=== PATIENT | female | born 1995 | race American Indian/Alaskan Native ===

== ENCOUNTER 2020-11-03 03:03 | Emergency (ER) | payer OTHER ==
[2020-11-03 03:53] VITALS: BP 121/82
[2020-11-03] MEDS ORDERED: SODIUM CHLORIDE 0.9% 1000 ML 1,000 ML IV ONE (03:57)
[2020-11-03] MEDS ORDERED: ONDANSETRON 4 MG/2 ML INJ IV ONE (03:57)
[2020-11-03] MEDS ORDERED: diphenhydrAMINE 50 MG/ML VIAL IV ONE ×2 (03:57→05:18)
--- NOTE | 2020-11-03 04:02 | Emergency Department Report ---
ED General Adult HPI - General Chief complaint: Nausea/Vomiting/Diarrhea Stated complaint: WITHDRAWALS Time Seen by Provider: 11/03/20 03:50 Source: patient Mode of arrival: Ambulatory Limitations: No Limitations - History of Present Illness Initial comments: Patient is 25 years old female with history of opiate abuse. Patient stated that she has been using oxycodone every day. Patient stated that she stopped taking oxycodone since yesterday and now she is having withdrawal symptoms. Patient stated that she is having nausea, vomiting and diarrhea. She stated that she is unable to keep anything down. Patient also complaining of itching. Patient denied any headache, neck pain, weakness numbness or tingling sensation. No suicidal or homicidal ideation. No visual or auditory hallucination. - Related Data Home Medications Medication Instructions Recorded Confirmed Last Taken Albuterol Mdi (or & Nicu Only) 11/03/20 11/03/20 [ProAir HFA Inhaler] Previous Rx's Medication Instructions Recorded Last Taken Type Ondansetron [Zofran Odt] 4 mg PO Q8HR PRN #14 tab.rapdis 11/03/20 Unknown Rx diphenhydrAMINE [Benadryl CAP] 25 mg PO Q8HR PRN #20 capsule 11/03/20 Unknown Rx Allergies Allergy/AdvReac Type Severity Reaction Status Date / Time shellfish derived Allergy Hives Verified 11/03/20 03:17 ED Review of Systems ROS: Stated complaint: WITHDRAWALS Other details as noted in HPI Comment: All other systems reviewed and negative Constitutional: denies: chills, fever ENT: denies: throat pain Respiratory: denies: cough, shortness of breath, SOB with exertion, SOB at rest Cardiovascular: denies: chest pain, palpitations Gastrointestinal: nausea, vomiting, diarrhea. denies: abdominal pain Musculoskeletal: denies: back pain Neurological: denies: headache, weakness, numbness, paresthesias, confusion Psychiatric: anxiety. denies: depression, auditory hallucinations, visual hallucinations, homicidal thoughts, suicidal thoughts ED Past Medical Hx - Past Medical History Previous Medical History?: Yes Hx Asthma: Yes - Social History Smoking Status: Never Smoker Substance Use Type: Prescribed - Medications Home Medications: Home Medications Medication Instructions Recorded Confirmed Last Taken Type Albuterol Mdi (or & Nicu Only) 11/03/20 11/03/20 History [ProAir HFA Inhaler] Ondansetron [Zofran Odt] 4 mg PO Q8HR PRN #14 tab.rapdis 11/03/20 Unknown Rx diphenhydrAMINE [Benadryl CAP] 25 mg PO Q8HR PRN #20 capsule 11/03/20 Unknown Rx ED Physical Exam - General Limitations: No Limitations General appearance: alert, in no apparent distress, anxious - Head Head exam: Present: atraumatic, normocephalic, normal inspection - Eye Eye exam: Present: normal appearance, PERRL - ENT ENT exam: Present: mucous membranes dry - Neck Neck exam: Present: normal inspection. Absent: tenderness, meningismus - Respiratory Respiratory exam: Present: normal lung sounds bilaterally - Cardiovascular Cardiovascular Exam: Present: regular rate, normal rhythm, normal heart sounds - GI/Abdominal GI/Abdominal exam: Present: soft, normal bowel sounds. Absent: distended, tenderness, guarding, rebound, rigid, organomegaly, mass, bruit, pulsatile mass, hernia - Extremities Exam Extremities exam: Present: normal inspection, full ROM, normal capillary refill. Absent: tenderness, pedal edema, calf tenderness - Back Exam Back exam: Present: normal inspection, full ROM. Absent: CVA tenderness (R), CV A tenderness (L) - Neurological Exam Neurological exam: Present: alert, oriented X3, CN II-XII intact, normal gait, reflexes normal. Absent: motor sensory deficit - Psychiatric Psychiatric exam: Present: normal mood - Skin Skin exam: Present: warm, intact, normal color ED Course Vital Signs 11/03/20 03:10 Temperature 98.7 F Pulse Rate 73 Respiratory 18 Rate Blood Pressure 121/82 ED Medical Decision Making - Lab Data Result diagrams: 11/03/20 03:54 11/03/20 03:54 - Medical Decision Making Patient is 25 years old female with history of opiate abuse. Patient stated that she has been using oxycodone every day. Patient stated that she stopped taking oxycodone since yesterday and now she is having withdrawal symptoms. Patient stated that she is having nausea, vomiting and diarrhea. She stated that she is unable to keep anything down. Patient also complaining of itching. Patient denied any headache, neck pain, weakness numbness or tingling sensation. No suicidal or homicidal ideation. No visual or auditory hallucination. Patient received normal saline, Zofran and Benadryl. Patient stated that she is feeling much better. Patient given a local resources for drug rehab and advised to follow up with her primary doctor in the next 2 to 3 days and to return to the ER if she develop any new symptoms. Critical care attestation.: If time is entered above; I have spent that time in minutes in the direct care of this critically ill patient, excluding procedure time. ED Disposition Clinical Impression: Acute nausea with nonbilious vomiting, Opioid abuse with withdrawal Disposition: TO HOME OR SELFCARE Is pt being admited?: No Condition: Stable Instructions: Opioid Withdrawal Treatment, Nausea and Vomiting, Adult, [id number] Prescriptions: diphenhydrAMINE [Benadryl CAP] 25 mg PO Q8HR PRN #20 capsule PRN Reason: Itching Ondansetron [Zofran Odt] 4 mg PO Q8HR PRN #14 tab.rapdis PRN Reason: Nausea And Vomiting Referrals: PRIMARY CARE, [Primary Care Provider] - 3-5 Days
[2020-11-03 04:29] LABS: Basophils # (Auto) 0.1 K/mm3 (0.0-0.1); Basophils % (Auto) 0.6 % (0.0-1.8); Eosinophils # (Auto) 0.1 K/mm3 (0.0-0.4); Eosinophils % (Auto) 0.6 % (0.0-4.3); Hematocrit 40.1 % (30.3-42.9); Hemoglobin 13.2 gm/dl (10.1-14.3); Lymphocytes % (Auto) 21.6 % (13.4-35.0); Mean Corpuscular HGB Conc 33 % (30-34); Mean Corpuscular Volume 89 fl (79-97); Monocytes # (Auto) 0.6 K/mm3 (0.0-0.8); Monocytes % (Auto) 6.6 % (0.0-7.3); Platelet Count 434 K/mm3 (140-440); Red Blood Count 4.51 M/mm3 (3.65-5.03); Red Cell Distribution Width 13.9 % (13.2-15.2)
[2020-11-03 04:45] LABS: Alanine Aminotransferase 20 units/L (7-56); Albumin 4.3 g/dL (3.9-5); Blood Urea Nitrogen 14 mg/dL (7-17); Calcium 9.2 mg/dL (8.4-10.2); Hemolysis Index 13
[2020-11-03 04:46] LABS: BUN/Creatinine Ratio 20
[2020-11-03 05:17] LABS: Amphetamine Screen,Urine PRESUMPTIVE NEGATIVE; Benzodiazepines Screen,Urine PRESUMPTIVE NEGATIVE; Cannabinoid Screen,Urine PRESUMPTIVE POSITIVE; Cocaine Screen,Urine PRESUMPTIVE NEGATIVE; Methadone Screen,Urine PRESUMPTIVE NEGATIVE; Opiate Screen,Urine PRESUMPTIVE POSITIVE
[2020-11-03] MEDS ORDERED: ACETAMINOPHEN 325 MG TAB PO ONE (05:18)
[2020-11-03 05:28] LABS: Bacteria,Urine 1+ /HPF (Negative); Bilirubin,Urine SM (Negative); Blood,Urine NEG (Negative); Color,Urine Amber (Yellow); Mucus,Urine 3+ /HPF; RBC,Urine < 1.0 /HPF (0.0-6.0)
[2020-11-03 05:39] LABS: Ictotest,Urine Negative (Negative)
== END 2020-11-03 05:43 | disposition home or self-care (01) ==
LOC: ED 03:03
DX: F11.10 Opioid abuse, uncomplicated (principal); R11.2 Nausea with vomiting, unspecified; J45.909 Unspecified asthma, uncomplicated; Z79.899 Other long term (current) drug therapy; Z91.013 Allergy to seafood
CPT/HCPCS: 36415; 80053; 80307; 81001; 83690; 84702; 85025; 96361; 96374; 96375; 96376; 99283; J1200; J2405; J7030